=== PATIENT | male | born 1980 ===

== ENCOUNTER 2020-05-10 19:48 | Inpatient (IN) | payer OTHER ==
[2020-05-10 20:40] VITALS: BMI 23.8
--- NOTE | 2020-05-10 21:29 | HP ---
CIWA Score Nausea/Vomitin-No Nausea/No Vomiting Muscle Tremors: 3 Anxiety: 3 Agitation: 1-Slight > Activity Paroxysmal Sweats: 3 (Increased facial moisture) Orientation: 3-Disoriented Date>2 days Tacttile Disturbances: 0-None Auditory Disturbances: 0-None Visual Disturbances: 0-None Headache: 0-None Present CIWA-Ar Total Score: 13 - Admission Criteria [facility]ASAS Guidelines: Admission for Medically Managed Detox: Requires at least one of the followin. CIWA greater than 12 2. Seizures within the past 24 hours 3. Delirium tremens within the past 24 hours 4. Hallucinations within the past 24 hours 5. Acute intervention needed for co occurring medical disorder 6. Acute intervention needed for co occurring psychiatric disorder 7. Severe withdrawal that cannot be handled at a lower level of care (continued vomiting, continued diarrhea, abnormal vital signs) requiring intravenous medication and/or fluids 8. Patient presents the following: CIWA greater than 12, Acute intervention needed for co-occurring med or psych disorder (RAMY: 0.176) Admission Criteria Met: Admission criteria met Admission ROS [facility] - [facility] Chief Complaint: I need to get this out of me - alcohol, PCP, and cigarettes" Allergies/Adverse Reactions: Allergies Allergy/AdvReac Type Severity Reaction Status Date / Time No Known Allergies Allergy Verified 05/10/20 21:16 History of Present Illness: 39 yo presents w/alcohol intoxication and mild withdrawal symptoms. Denies seizure or overdoses. Alcohol use began at age 17. Currently drinks 4- 10 nips/daily plus beer PCP use since age 36. Currently smokes 1 bag 2-3x/wk Nicotine use since age 22. Smokes 1/2 PPD PMHx: Denies Abn EKG reviewed w/patient. States told had it when at [facility]. Denies CP/SOB. Encouraged to f/u w/ PCP upon discharge. Verbalized an understanding. MHHx: Depression. Denies thoughts of harming self. Does not see a Psych SHx: Homeless. Unemployed. + legal issues Search Terms: Varinder Dalal, 1980 Search Date: 05/10/2020 21:23:55 PM The Drug Utilization Report below displays all of the controlled substance prescriptions, if any, that your patient has filled in the last twelve months. The information displayed on this report is compiled from pharmacy submissions to the Department, and accurately reflects the information as submitted by the pharmacies. This report was requested by: Francinenelia Leal | Reference #: [id number] There are no results for the search terms that you entered. Exam Limitations: No Limitations - Ebola screening Have you traveled outside of the country in the last 21 days: No (Denies COVID exposure) Have you had contact with anyone from an Ebola affected area: No Have you been sick,other than usual withdrawal symptoms: No Do you have a fever: No - Review of Systems Constitutional: Diaphoresis, Changes in sleep (Difficulty falling and staying asleep), Weight Stable EENT: reports: Blurred Vision, Dental Problems (cracked and missing teeth. Chews and swallows ok) Respiratory: reports: No Symptoms reported Cardiac: reports: No Symptoms Reported GI: reports: Diarrhea (brown, watery x 4 today), Indigestion (Heart burn - rx'd w [facility]) : reports: No Symptoms Reported Musculoskeletal: reports: No Symptoms Reported Integumentary: reports: Lumps, Other Neuro: reports: Tremors Endocrine: reports: Increased Thirst Hematology: reports: No Symptoms Reported Psychiatric: reports: Judgement Intact, Agitated, Anxious, Depressed (Denies thoughts of harming self), Disorientated Patient History - PPD History Previous Implant?: Yes Documented Results: Negative w/proof Implanted On Prior [facility] Admission?: No PPD to be Administered?: Yes - Smoking Cessation Smoking history: Current every day smoker Have you smoked in the past 12 months: Yes Aproximately how many cigarettes per day: 10 Hx Chewing Tobacco Use: No Initiated information on smoking cessation: Yes 'Breaking Loose' booklet given: 05/10/20 - Substance & Tx. History Hx Alcohol Use: Yes Hx Substance Use: Yes Substance Use Type: Alcohol, Tranquilizers (PCP) Hx Substance Use Treatment: Yes (detox, rehab, ) - Substances abused Alcohol Substance route: Oral Frequency: Daily Amount used: liqour- 4 pints, beer- 1 six px Age of first use: 18 Date of last use: 05/10/20 PCP Substance route: Smoking Frequency: Daily Amount used: 4 sticks Age of first use: 37 Date of last use: 05/10/20 Admission Physical Exam [facility] - Vital Signs Vital Signs: Vital Signs - 24 hr 07/20/20 20:39 Temperature 97.7 F Pulse Rate 111 H Respiratory 18 Rate Blood Pressure 122/83 - Physical General Appearance: Yes: Nourished, Mild Distress, Alcohol on Breath, Intoxicated, Tremorous (Mild), Sweating (Increased facial moisture), Anxious HEENTM: Yes: Hearing grossly Normal, Normocephalic, Normal Voice, SERGO, Pharynx Normal, Other (Minimal thickened saliva) Respiratory: Yes: Lungs Clear (Pulse ox = 97%), Normal Breath Sounds, No Respiratory Distress Neck: Yes: No masses,lesions,Nodules, Supple Breast: Yes: Breast Exam Deferred Cardiology: Yes: Regular Rhythm, Regular Rate (HR: 96), S1, S2 Abdominal: Yes: Normal Bowel Sounds, Non Tender, Soft Genitourinary: Yes: Within Normal Limits Back: Yes: Normal Inspection Musculoskeletal: Yes: full range of Motion, Gait Steady Extremities: Yes: Normal Capillary Refill Neurological: Yes: Alert, Motor Strength 5/5, Disoriented (to date) Integumentary: Yes: Normal Color, Warm, Moist (Increased facial moisture), Other (Decreased skin turgor) Lymphatic: Yes: Within Normal Limits - Diagnostic (1) Alcohol dependence with withdrawal, uncomplicated Current Visit: Yes Status: Acute (2) Nicotine dependence, unspecified, uncomplicated Current Visit: Yes Status: Chronic Qualifiers: Nicotine product type: cigarettes Qualified Code(s): F17.210 - Nicotine dependence, cigarettes, uncomplicated (3) Dehydration symptoms Current Visit: Yes Status: Acute (4) Phencyclidine (PCP) use disorder, moderate Current Visit: Yes Status: Chronic (5) Abnormal finding on EKG Current Visit: Yes Status: Chronic Cleared for Admission [facility] - Detox or Rehab [facility] Level of Care: Medically Managed Detox Regimen/Protocol: Librium Claeared for Rehab Admission: No Breathalyzer - Breathalyzer Breathalyzer: 0.176 Urine Drug Screen - Test Device Lot number: [id number] Expiration date: 06/21/21 - Control Is test valid?: Yes - Results Drug screen NEGATIVE: No (PCP) Inpatient Rehab Admission - Rehab Decision to Admit Inpatient rehab admission?: No
[2020-05-10] MEDS ORDERED: IBUPROFEN 400 MG TABLET (FP) PO PRN (22:22)
[2020-05-10] MEDS ORDERED: BISMUTH SUBSALICYLATE 524 MG/30 ML UD PO PRN (22:22)
[2020-05-10] MEDS ORDERED: MAGNESIUM HYDROX 2400MG/30ML ORAL SUSPENSION 30 ML CUP PO PRN (22:22)
[2020-05-10] MEDS ORDERED: ONDANSETRON *ODT* 4 MG TABLET SL ONE (22:22)
[2020-05-10] MEDS ORDERED: MENTHOL/PHENOL 1 EACH UD MM PRN (22:22)
[2020-05-10] MEDS ORDERED: METHOCARBAMOL 500 MG TABLET PO PRN (22:22)
[2020-05-10] MEDS ORDERED: chlordiazePOXIDE HCL 25 MG CAPSULE PO PRN (22:22)
[2020-05-10] MEDS ORDERED: NICOTINE POLACRILEX 2 MG GUM BUC PRN (22:22)
[2020-05-10] MEDS ORDERED: MAGNESIUM CITRATE 300 ML BOTTLE PO PRN (22:22)
[2020-05-10] MEDS ORDERED: ACETAMINOPHEN 325 MG TABLET (FP) PO PRN ×2 (22:22)
[2020-05-10] MEDS ORDERED: TUBERCULIN PPD 5 TU/0.1ML VIAL ID ONE (22:55)
[2020-05-10] MEDS: chlordiazePOXIDE HCL 25 MG CAPSULE PO SCH (23:01)
[2020-05-11] MEDS: chlordiazePOXIDE HCL 25 MG CAPSULE PO SCH ×4 (06:45→22:14)
[2020-05-11] MEDS: hydrOXYzine PAMOATE 25 MG CAPSULE (FP) PO SCH ×5 (06:47→22:14)
--- NOTE | 2020-05-11 09:35 | PN ---
[facility] CIWA - CIWA Score Nausea/Vomitin-No Nausea/No Vomiting Muscle Tremors: 3 Anxiety: 5 Agitation: 2 Paroxysmal Sweats: 1-Minimal Palms Moist Orientation: 0-Oriented Tacttile Disturbances: 0-None Auditory Disturbances: 0-None Visual Disturbances: 0-None Headache: 0-None Present CIWA-Ar Total Score: 11 [facility] Progress Note (SOAP) Subjective: Diarrhea Anxiety Sweat Objective: 05/11/20 09:34 Vital Signs - 24 hr 05/10/20 05/10/20 05/10/20 20:39 21:16 22:54 Temperature 97.7 F 97.7 F 97.8 F Pulse Rate 111 H 111 H 83 Respiratory 18 18 18 Rate Blood Pressure 122/83 122/83 124/82 O2 Sat by Pulse 96 Oximetry (%) 05/11/20 05/11/20 05:53 05:58 Temperature 96.9 F L 97.5 F L Pulse Rate 83 65 Respiratory 20 18 Rate Blood Pressure 142/78 112/69 O2 Sat by Pulse 96 97 Oximetry (%) Laboratory Tests 05/11/20 07:50 WBC 6.5 RBC 4.68 Hgb 14.1 Hct 43.6 MCV 93.1 MCH 30.1 MCHC 32.3 RDW 14.4 Plt Count 181 MPV 9.4 other labs pending Alert o x 3 nad oob ambulating with steady gait 05/11/20 10:34 Assessment: 05/11/20 10:33 withdrawal sx Plan: cont detox increase po fluids imodium prn for diarrhea
[2020-05-11 10:00] LABS: HEMATOCRIT 43.6 % (35.4-49); HEMOGLOBIN 14.1 GM/dL (11.7-16.9); MCH 30.1 pg (25.7-33.7); MCHC 32.3 g/dl (32.0-35.9); MEAN CELL VOLUME 93.1 fl (80-96); MEAN PLT VOLUME 9.4 fl (7.5-11.1); PLATELET COUNT 181 K/MM3 (134-434); RBC 4.68 M/mm3 (4.00-5.60); RDW 14.4 % (11.9-15.9); WHITE BLOOD COUNT 6.5 K/mm3 (4.0-10.0)
[2020-05-11 10:48] LABS: BILIRUBIN,TOTAL 0.5 mg/dL (0.2-1); POTASSIUM 3.6 mmol/L (3.5-5.1)
[2020-05-11 10:53] LABS: ALBUMIN 3.7 g/dl (3.4-5.0); BLOOD UREA NITROGEN 13.9 mg/dL (7-18); CALCIUM 8.7 mg/dL (8.5-10.1); CREATININE 1.2 mg/dL (0.55-1.3); TOT PROT 6.8 g/dl (6.4-8.2)
[2020-05-11] MEDS: PRENATAL VITAMINS W/ FOLIC ACID TABLET (FP) PO SCH (11:19)
[2020-05-11] MEDS: NICOTINE 21 MG/24 HOURS TOPICAL PATCH TD SCH (11:19)
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
--- NOTE | 2020-05-11 13:15 | EKG ---
Test Reason : Blood Pressure : / mmHG Vent. Rate : 083 BPM Atrial Rate : 083 BPM P-R Int : 134 ms QRS Dur : 110 ms QT Int : 372 ms P-R-T Axes : 066 059 029 degrees QTc Int : 437 ms NORMAL SINUS RHYTHM POSSIBLE LEFT ATRIAL ENLARGEMENT LEFT VENTRICULAR HYPERTROPHY ABNORMAL ECG NO PREVIOUS ECGS AVAILABLE Confirmed by Db Vinson ([id number]) on 05/11/2020 1:14:44 PM Referred By: Confirmed By:Db Vinson
[2020-05-11] MEDS: MAG HYDROX/AL HYDROX/SIMETH 30 ML UNIT-DOSE CUP PO PRN (16:01)
[2020-05-11] MEDS ORDERED: SUVOREXANT 10 MG TABLET PO PRN (22:00)
[2020-05-11] MEDS: THIAMINE HCL 100 MG TABLET (FP) PO SCH (22:13)
[2020-05-11] MEDS: MELATONIN 5 MG TABLETS PO SCH (22:15)
[2020-05-12] MEDS: chlordiazePOXIDE HCL 25 MG CAPSULE PO SCH ×4 (06:41→22:21)
[2020-05-12] MEDS: hydrOXYzine PAMOATE 25 MG CAPSULE (FP) PO SCH ×5 (06:41→22:21)
--- NOTE | 2020-05-12 10:42 | PN ---
S CIWA - CIWA Score Nausea/Vomitin-No Nausea/No Vomiting Muscle Tremors: 2 Anxiety: 4-Mod. Anxious/Guarded Agitation: 2 Paroxysmal Sweats: 1-Minimal Palms Moist Orientation: 0-Oriented Tacttile Disturbances: 0-None Auditory Disturbances: 0-None Visual Disturbances: 0-None Headache: 0-None Present CIWA-Ar Total Score: 9 [facility] Progress Note (SOAP) Subjective: Reports detox proceeding well. C/o anxiety fatigue Objective: 05/12/20 10:38 Vital Signs - 24 hr 05/11/20 05/11/20 05/11/20 11:00 17:56 21:45 Temperature 98.6 F Pulse Rate 73 74 73 Respiratory 20 18 18 Rate Blood Pressure 129/88 125/75 O2 Sat by Pulse 97 97 98 Oximetry (%) 05/12/20 05:36 Temperature 98.0 F Pulse Rate 59 L Respiratory 18 Rate Blood Pressure 104/70 O2 Sat by Pulse 96 Oximetry (%) Laboratory Tests 05/10/20 05/11/20 05/11/20 22:15 07:50 07:50 WBC 6.5 RBC 4.68 Hgb 14.1 Hct 43.6 MCV 93.1 MCH 30.1 MCHC 32.3 RDW 14.4 Plt Count 181 MPV 9.4 Sodium Potassium Chloride Carbon Dioxide Anion Gap BUN Creatinine Est GFR (CKD-EPI)AfAm Est GFR (CKD-EPI)NonAf Random Glucose Calcium Total Bilirubin AST ALT Alkaline Phosphatase Total Protein Albumin Syphilis Serology Non-reactive COVID-19 ([facility]) Not detected 05/11/20 07:50 WBC RBC Hgb Hct MCV MCH MCHC RDW Plt Count MPV Sodium 143 Potassium 3.6 Chloride 108 H Carbon Dioxide 30 Anion Gap 5 L BUN 13.9 Creatinine 1.2 Est GFR (CKD-EPI)AfAm 89.00 Est GFR (CKD-EPI)NonAf 76.79 Random Glucose 124 H Calcium 8.7 Total Bilirubin 0.5 AST 26 ALT 30 Alkaline Phosphatase 86 Total Protein 6.8 Albumin 3.7 Syphilis Serology COVID-19 ([facility]) covid-19 not detected UA pending alert o x 3 nad oob ambulating with steady gait Assessment: 05/12/20 10:39 withdrawal sx Plan: continue detox increase po fluids maintain safety FBS x 1 in AM
[2020-05-12] MEDS: NICOTINE 21 MG/24 HOURS TOPICAL PATCH TD SCH (10:54)
[2020-05-12] MEDS: PRENATAL VITAMINS W/ FOLIC ACID TABLET (FP) PO SCH (10:54)
[2020-05-12] MEDS: MAG HYDROX/AL HYDROX/SIMETH 30 ML UNIT-DOSE CUP PO PRN (13:01)
[2020-05-12 19:42] LABS: URINE APPEARANCE CLEAR; URINE BILIRUBIN NEGATIVE (NEGATIVE); URINE COLOR YELLOW; URINE GLUCOSE (UA) NEGATIVE (NEGATIVE); URINE KETONE NEGATIVE (NEGATIVE); URINE LEUK ESTERASE NEGATIVE (NEGATIVE); URINE NITRITE NEGATIVE (NEGATIVE); URINE PROTEIN NEGATIVE (NEGATIVE); URINE UROBILINOGEN 0.2 mg/dL (0.2-1.0)
[2020-05-12] MEDS: MELATONIN 5 MG TABLETS PO SCH (22:21)
[2020-05-12] MEDS: THIAMINE HCL 100 MG TABLET (FP) PO SCH (22:21)
[2020-05-13] MEDS ORDERED: chlordiazePOXIDE HCL 10 MG CAPSULE PO PRN
[2020-05-13] MEDS: hydrOXYzine PAMOATE 25 MG CAPSULE (FP) PO SCH ×5 (07:10→22:49)
[2020-05-13] MEDS: chlordiazePOXIDE HCL 10 MG CAPSULE PO SCH ×4 (07:10→22:49)
[2020-05-13] MEDS: PRENATAL VITAMINS W/ FOLIC ACID TABLET (FP) PO SCH (10:20)
[2020-05-13] MEDS: NICOTINE 21 MG/24 HOURS TOPICAL PATCH TD SCH (10:20)
[2020-05-13] MEDS: MAG HYDROX/AL HYDROX/SIMETH 30 ML UNIT-DOSE CUP PO PRN ×2 (10:22→21:30)
--- NOTE | 2020-05-13 12:00 | PN ---
S CIWA - CIWA Score Nausea/Vomitin-No Nausea/No Vomiting Muscle Tremors: 3 Anxiety: 4-Mod. Anxious/Guarded Agitation: 3 Paroxysmal Sweats: 1-Minimal Palms Moist Orientation: 0-Oriented Tacttile Disturbances: 0-None Auditory Disturbances: 0-None Visual Disturbances: 0-None Headache: 2-Mild CIWA-Ar Total Score: 13 [facility] Progress Note (SOAP) Subjective: c/o anxiety sweats headache irritable sleepy(at rounds time) Objective: 05/13/20 11:58 Vital Signs - 24 hr 05/12/20 05/12/20 05/12/20 12:55 17:20 20:20 Temperature 97.7 F 98 F Pulse Rate 76 75 Respiratory 16 18 Rate Blood Pressure 115/74 118/80 O2 Sat by Pulse 97 98 Oximetry (%) 05/12/20 05/13/20 22:26 05:36 Temperature 97 F L 97.3 F L Pulse Rate 82 60 Respiratory 18 18 Rate Blood Pressure 140/90 100/64 O2 Sat by Pulse 95 Oximetry (%) Laboratory Tests 05/10/20 05/11/20 05/11/20 22:15 07:50 07:50 WBC 6.5 RBC 4.68 Hgb 14.1 Hct 43.6 MCV 93.1 MCH 30.1 MCHC 32.3 RDW 14.4 Plt Count 181 MPV 9.4 Sodium Potassium Chloride Carbon Dioxide Anion Gap BUN Creatinine Est GFR (CKD-EPI)AfAm Est GFR (CKD-EPI)NonAf POC Glucometer Random Glucose Calcium Total Bilirubin AST ALT Alkaline Phosphatase Total Protein Albumin Urine Color Urine Appearance Urine pH Ur Specific Griffith Urine Protein Urine Glucose (UA) Urine Ketones Urine Blood Urine Nitrite Urine Bilirubin Urine Urobilinogen Ur Leukocyte Esterase Syphilis Serology Non-reactive COVID-19 ([facility]) Not detected 05/11/20 05/12/20 05/13/20 07:50 13:49 07:08 WBC RBC Hgb Hct MCV MCH MCHC RDW Plt Count MPV Sodium 143 Potassium 3.6 Chloride 108 H Carbon Dioxide 30 Anion Gap 5 L BUN 13.9 Creatinine 1.2 Est GFR (CKD-EPI)AfAm 89.00 Est GFR (CKD-EPI)NonAf 76.79 POC Glucometer 126 Random Glucose 124 H Calcium 8.7 Total Bilirubin 0.5 AST 26 ALT 30 Alkaline Phosphatase 86 Total Protein 6.8 Albumin 3.7 Urine Color Yellow Urine Appearance Clear Urine pH 6.0 Ur Specific Griffith 1.015 Urine Protein Negative Urine Glucose (UA) Negative Urine Ketones Negative Urine Blood Negative Urine Nitrite Negative Urine Bilirubin Negative Urine Urobilinogen 0.2 Ur Leukocyte Esterase Negative Syphilis Serology COVID-19 ([facility]) alert o x 3 nad but tired-looking laying in bed at rounds and communicated needs coherently. Assessment: 05/13/20 11:59 withdrawal sx Plan: cont detox increase po fluids maintain safety.
[2020-05-13 21:17] VITALS: BP 110/78; PULSE 80; TEMP 98.9
--- NOTE | 2020-05-13 22:20 | DS ---
[facility] Detox Discharge Summary Admission Date: 05/10/20 Discharge Date: 05/13/20 - History Additional Comments: Patient left against medical advice. He reports "I just want to go home". Risks and consequences of his action including relapse and reinforced. Patient is alert and oriented x 3, in no acute distress, vital signs stable and he is ambulating independently. Discharge was completed in 30 minutes. Pertinent Past History: Alcohol dependence PCP dependence Substance induced sleep disorder Nicotine dependence - Physical Exam Results Vital Signs: Vital Signs Temperature 98.9 F 05/13/20 20:11 Pulse Rate 80 05/13/20 20:11 Respiratory Rate 18 05/13/20 20:11 Blood Pressure 110/78 05/13/20 20:11 O2 Sat by Pulse Oximetry (%) 96 05/13/20 20:11 Laboratory Last Values WBC 6.5 K/mm3 (4.0-10.0) 05/11/20 07:50 RBC 4.68 M/mm3 (4.00-5.60) 05/11/20 07:50 Hgb 14.1 GM/dL (11.7-16.9) 05/11/20 07:50 Hct 43.6 % (35.4-49) 05/11/20 07:50 MCV 93.1 fl (80-96) 05/11/20 07:50 MCH 30.1 pg (25.7-33.7) 05/11/20 07:50 MCHC 32.3 g/dl (32.0-35.9) 05/11/20 07:50 RDW 14.4 % (11.9-15.9) 05/11/20 07:50 Plt Count 181 K/MM3 (134-434) 05/11/20 07:50 MPV 9.4 fl (7.5-11.1) 05/11/20 07:50 Sodium 143 mmol/L (136-145) 05/11/20 07:50 Potassium 3.6 mmol/L (3.5-5.1) 05/11/20 07:50 Chloride 108 mmol/L (98-107) H 05/11/20 07:50 Carbon Dioxide 30 mmol/L (21-32) 05/11/20 07:50 Anion Gap 5 MMOL/L (8-16) L 05/11/20 07:50 BUN 13.9 mg/dL (7-18) 05/11/20 07:50 Creatinine 1.2 mg/dL (0.55-1.3) 05/11/20 07:50 Est GFR (CKD-EPI)AfAm 89.00 05/11/20 07:50 Est GFR (CKD-EPI)NonAf 76.79 05/11/20 07:50 POC Glucometer 126 UNITS (80-120) 05/13/20 07:08 Random Glucose 124 mg/dL (74-106) H 05/11/20 07:50 Calcium 8.7 mg/dL (8.5-10.1) 05/11/20 07:50 Total Bilirubin 0.5 mg/dL (0.2-1) 05/11/20 07:50 AST 26 U/L (15-37) 05/11/20 07:50 ALT 30 U/L (13-61) 05/11/20 07:50 Alkaline Phosphatase 86 U/L (45-117) 05/11/20 07:50 Total Protein 6.8 g/dl (6.4-8.2) 05/11/20 07:50 Albumin 3.7 g/dl (3.4-5.0) 05/11/20 07:50 Urine Color Yellow 05/12/20 13:49 Urine Appearance Clear 05/12/20 13:49 Urine pH 6.0 (5.0-8.0) 05/12/20 13:49 Ur Specific [place] 1.015 (1.010-1.035) 05/12/20 13:49 Urine Protein Negative (NEGATIVE) 05/12/20 13:49 Urine Glucose (UA) Negative (NEGATIVE) 05/12/20 13:49 Urine Ketones Negative (NEGATIVE) 05/12/20 13:49 Urine Blood Negative (NEGATIVE) 05/12/20 13:49 Urine Nitrite Negative (NEGATIVE) 05/12/20 13:49 Urine Bilirubin Negative (NEGATIVE) 05/12/20 13:49 Urine Urobilinogen 0.2 mg/dL (0.2-1.0) 05/12/20 13:49 Ur Leukocyte Esterase Negative (NEGATIVE) 05/12/20 13:49 Syphilis Serology Non-reactive (NONREACTIVE) 05/11/20 07:50 COVID-19 ([facility]) Not detected (Not Detected) 05/10/20 22:15 Pertinent Admission Physical Exam Findings: Alcohol withdrawal symptoms - Medication Discharge Medications: Ambulatory Orders NK [No Known Home Medication] 05/10/20 - Diagnosis (1) Alcohol dependence with withdrawal, uncomplicated Status: Chronic (2) Phencyclidine (PCP) use disorder, moderate Status: Chronic (3) Substance-induced sleep disorder Status: Chronic (4) Nicotine dependence, unspecified, uncomplicated Status: Chronic Qualifiers: Nicotine product type: cigarettes Qualified Code(s): F17.210 - Nicotine dependence, cigarettes, uncomplicated - AMA Did Patient Leave Against Medical Advice: Yes
[2020-05-13] MEDS: THIAMINE HCL 100 MG TABLET (FP) PO SCH (22:49)
[2020-05-13] MEDS: MELATONIN 5 MG TABLETS PO SCH (22:49)
[2020-05-14] MEDS ORDERED: chlordiazePOXIDE HCL 10 MG CAPSULE PO SCH (05:00)
[2020-05-15] MEDS ORDERED: chlordiazePOXIDE HCL 10 MG CAPSULE PO ONE (05:00)
== END 2020-05-13 21:40 | disposition left against medical advice (07) | DRG 770 ==
LOC: YASAS 19:48 → Y5N DETOX 21:24
PROVIDERS: ADMIT Allergy & Immunology; ATTEND Allergy & Immunology
PROC: HZ2ZZZZ Detoxification Services for Substance Abuse Treatment (ICD-10-PCS; principal; 2020-05-10)
DX: F10.230 Alcohol dependence with withdrawal, uncomplicated (principal); F16.20 Hallucinogen dependence, uncomplicated; F17.210 Nicotine dependence, cigarettes, uncomplicated; F19.282 Other psychoactive substance dependence with psychoactive substance-induced sleep disorder; F32.9 Major depressive disorder, single episode, unspecified; R94.31 Abnormal electrocardiogram [ECG] [EKG]; R63.8 Other symptoms and signs concerning food and fluid intake; Z56.0 Unemployment, unspecified; Z59.0 Homelessness
CPT/HCPCS: 36415; 80053; 81003; 82962; 85027; 86780; 93005; 93010; U0003